=== PATIENT | female | born 1965 | race Caucasian/White ===

== ENCOUNTER 2023-02-13 08:51 | Observation (INO) | payer OTHER ==
[2023-02-13] MEDS ORDERED: Zofran 4 MG/2 ML VIAL IV ONE (09:43)
[2023-02-13] MEDS ORDERED: Sodium Chloride 0.9% 1000 ML 1,000 ML IV SCH (09:45)
--- NOTE | 2023-02-13 10:09 | XRAY ---
Indication: Dizziness. Multiple contiguous axial images obtained through the head without contrast. Comparison: None Normal appearing brain parenchyma, ventricles, and bony calvarium. Visualized paranasal sinuses and mastoid air cells are clear. Impression: Normal CT head without contrast exam.
[2023-02-13] MEDS ORDERED: BABY ASPIRIN 81 MG CHEW PO ONE (10:18)
[2023-02-13] MEDS ORDERED: BABY ASPIRIN 81 MG CHEW ONE (10:26)
[2023-02-13] MEDS ORDERED: Zofran 4 MG/2 ML VIAL ONE (10:26)
[2023-02-13] MEDS ORDERED: Sodium Chloride 0.9% 1000 ML 1,000 ML ONE (10:26)
[2023-02-13 10:27] LABS: ADD URINE CULTURE? YES (NO); Appearance Clear (Clear); Bacteria None Seen /HPF (None Seen); Bilirubin Negative (Negative); Blood Negative (Negative); Epithelial Cells None Seen /HPF (None Seen); Glucose, Urine Negative (Negative); Hyaline Casts NONE SEEN /LPF (0-2); Ketones Negative (Negative); Leukocyte Esterase Small (Negative); Nitrite Negative (Negative); Protein,Urine Dip Negative (Negative); RBC 0-2 /HPF (0-5); Specific Gravity 1.015 (1.005-1.030)
[2023-02-13] MEDS ORDERED: TORAdol 30 mg Injection ONE (10:28)
--- NOTE | 2023-02-13 10:55 | ERPHSYRPT ---
- History of Present Illness Time Seen by Provider: 02/13/23 09:00 Source: patient Exam Limitations: no limitations Patient Subjective Stated Complaint: dizziness Triage Nursing Assessment: Pt brought to the ER by her , hypertensive, denies pain, woke this morning and before she got up she states that she was dizzy after a few minutes she got up and was dizzy again, did some things to get ready and when she started blow drying her hair she got really dizzy again, denies LOC, denies any injuries, denies ear aches, states that she is beginning to feel nauseous, pulses normal, no difficulty with breathing, skin n/w/d, doesn't appear to be in any distress Physician History: Patient is a 57-year-old female presents to emergency department for evaluation of of dizziness that started this morning. Patient states the dizziness resolved then recurred several different times prior to her arrival to our ED. Patient is currently nauseous. No numbness tingling or weakness. No focal or lateralizing symptoms. Symptoms are mild to moderate in intensity. Patient voices no other complaints or concerns at this time. Portions of this note were created with voice recognition technology. There may be grammatical, spelling, punctuation or sound alike errors Timing/Duration: today Severity: moderate Associated Symptoms: nausea Allergies/Adverse Reactions: nitrofurantoin [From Macrobid] Allergy (Intermediate, Verified 02/13/23 09:09) Hives nitrofurantoin macrocrystalline [From Macrobid] Allergy (Intermediate, Verified 02/13/23 09:09) Hives doxycycline Allergy (Mild, Verified 02/13/23 09:09) Diarrhea gatifloxacin [From Tequin] Allergy (Mild, Verified 02/13/23 09:09) acetaminophen [From Vicodin] Allergy (Verified 02/13/23 09:09) clarithromycin [From Biaxin] Allergy (Verified 02/13/23 09:09) Stomach Pain hydrocodone bitartrate [From Vicodin] Allergy (Verified 02/13/23 09:09) pt does not think she is allergic to vicodin does not remember taking it. potassium clavula *RETIRED-06/26/12 [From Augmentin] Allergy (Verified 02/13/23 09:09) Diarrhea amoxicillin trihydrate [From Augmentin] Adverse Reaction (Verified 02/13/23 09:09) Home Medications: Fluoxetine HCl 40 mg PO HS 07/14/11 [History] Albuterol Sulfate [Proair Hfa] 2 puff IH Q4H PRN PRN 08/16/11 [History] Diphenhydramine HCl [Benadryl Allergy] 25 mg PO HS PRN PRN 09/10/15 [History] Montelukast Sodium 10 mg [Singulair 10 MG] 10 mg PO DAILY 05/17/18 [History] Benralizumab [Fasenra] 30 mg SQ DIRECTIONS UNKNOWN 06/14/18 [History] Aspirin EC 81 mg [Ecotrin 81 mg] 81 mg PO DAILY 12/25/20 [History] Lisinopril 10 mg [Zestril 10 MG] 10 mg PO DAILY 12/25/20 [History] Levocetirizine Dihydrochloride [Xyzal] 5 mg PO DAILY 02/24/21 [History] Omeprazole 20 mg PO DAILY 08/04/22 [History] Hx Tetanus, Diphtheria Vaccination/Date Given: Yes Hx Influenza Vaccination/Date Given: Yes (2014) Hx Pneumococcal Vaccination/Date Given: No Travel Risk - International Travel Have you traveled outside of the country in past 3 weeks: No - Coronavirus Screening Are you exhibiting any of the following symptoms?: No Close contact with a COVID-19 positive Pt in past 14-21 Days: No - Vaccine Status Have you recieved a Covid-19 vaccination: No [employer]: Pfizer - Vaccination Dates Date of 2cond Vaccination (if applicable): 2020 - Review of Systems Constitutional: No Symptoms, No Fever, No Chills Eyes: No Symptoms Ears, Nose, & Throat: No Symptoms Respiratory: No Symptoms, No Cough, No Dyspnea Cardiac: No Symptoms, No Chest Pain, No Edema, No Syncope Abdominal/Gastrointestinal: No Symptoms, No Abdominal Pain, No Nausea, No Vomiting, No Diarrhea Genitourinary Symptoms: No Symptoms, No Dysuria Musculoskeletal: No Symptoms, No Back Pain, No Neck Pain Skin: No Symptoms, No Rash Neurological: No Symptoms, No Dizziness, No Focal Weakness, No Sensory Changes Psychological: No Symptoms Endocrine: No Symptoms Hematologic/Lymphatic: No Symptoms Immunological/Allergic: No Symptoms All Other Systems: Reviewed and Negative - Past Medical History Pertinent Past Medical History: Yes Neurological History: Other ENT History: Other Cardiac History: No Pertinent History Respiratory History: Sleep Apnea, Asthma Endocrine Medical History: Diabetes Type II Musculoskeletal History: Osteoarthritis, Degenerative Disk Disease GI Medical History: Gallbladder Disease History: No Pertinent History Psycho-Social History: Anxiety Female Reproductive Disorders: No Pertinent History Other Medical History: pseudotumor cerebrii, COVID october 2020. Flu A Mar 2021 - Past Surgical History Past Surgical History: Yes Neuro Surgical History: No Pertinent History Cardiac: No Pertinent History Respiratory: No Pertinent History Gastrointestinal: Cholecystectomy Genitourinary: No Pertinent History Musculoskeletal: Orthopedic Surgery Female Surgical History: No Pertinent History Other Surgical History: lumbar puncture, cervical fusion, left carpal tunnel and trigger finger released thumb . right carpal tunnel release and bilateral trigger thumb 08/07/2019. - Social History Smoking Status: Never smoker Exposure to second hand smoke: No Drug Use: none Patient Lives Alone: No - Nursing Vital Signs Nursing Vital Signs: Initial Vital Signs Temperature 97.3 F 02/13/23 08:58 Pulse Rate 96 H 02/13/23 08:58 Blood Pressure 171/85 02/13/23 08:58 O2 Sat by Pulse Oximetry 98 02/13/23 08:58 Pain Scale Pain Intensity 0 - Physical Exam General Appearance: no apparent distress, alert Eye Exam: PERRL/EOMI, eyes nml inspection Ears, Nose, Throat Exam: normal ENT inspection, TMs normal, pharynx normal, moist mucous membranes Neck Exam: normal inspection, non-tender, supple, full range of motion Respiratory Exam: normal breath sounds, lungs clear, airway intact, No respiratory distress Cardiovascular Exam: regular rate/rhythm, normal heart sounds, normal peripheral pulses Gastrointestinal/Abdomen Exam: soft, normal bowel sounds, No tenderness, No mass Back Exam: normal inspection, normal range of motion, No CVA tenderness, No vertebral tenderness Extremity Exam: normal inspection, normal range of motion, pelvis stable Neurologic Exam: alert, oriented x 3, cooperative, normal mood/affect, nml cerebellar function, nml station & gait, sensation nml, No motor deficits Skin Exam: normal color, warm, dry, No rash Lymphatic Exam: No adenopathy SpO2 Interpretation: normal SpO2: 97 O2 Delivery: Room Air - Course Nursing assessment & vital signs reviewed: Yes EKG Interpreted by Me: RATE (80), Sinus Rhythm, NORMAL AXIS, NORMAL INTERVALS - CT Exams Head CT Interpretation: Tele-radiologist Report (No acute intracranial process observed) Ordered Tests: Active Orders 24 hr Category Date Time Status Poultry Raiser STAT Care 02/13/23 09:38 Active EKG-ER Only STAT Care 02/13/23 09:37 Active IV Insertion STAT Care 02/13/23 09:37 Active Pulse Oximetry (ED) STAT Care 02/13/23 09:37 Active HEAD WITHOUT CONTRAST [CT] Stat Exams 02/13/23 09:39 Completed CBC W DIFF Stat Lab 02/13/23 10:50 Completed CMP Stat Lab 02/13/23 10:50 Completed CULTURE,URINE Stat Lab 02/13/23 09:54 Received TROPONIN Q4H Lab 02/13/23 10:50 Received TROPONIN Q4H Lab 02/13/23 13:45 Ordered TROPONIN Q4H Lab 02/13/23 17:45 Ordered UA W/RFX UR CULTURE Stat Lab 02/13/23 09:54 Completed Medication Summary Generic Name Dose Route Start Last Admin Trade Name Freq PRN Reason Stop Dose Admin Sodium Chloride 1,000 mls @ 50 mls/hr 02/13/23 09:45 02/13/23 10:31 Sodium Chloride 0.9% 1000 Ml IV 03/15/23 09:44 50 mls/hr .Q20H REGINA Administration Discontinued Medications Generic Name Dose Route Start Last Admin Trade Name Freq PRN Reason Stop Dose Admin Aspirin 324 mg 02/13/23 10:18 02/13/23 10:31 Aspirin 81 Mg Tab.Chew PO 02/13/23 10:19 324 mg STAT ONE Administration Aspirin Confirm 02/13/23 10:26 Aspirin 81 Mg Tab.Chew Administered 02/13/23 10:27 Dose 324 mg .ROUTE .STK-MED ONE Ketorolac Tromethamine Confirm 02/13/23 10:28 Ketorolac Tromethamine 30 Mg/Ml Inj Administered 02/13/23 10:29 Dose 30 mg .ROUTE .STK-MED ONE Meclizine HCl 25 mg 02/13/23 11:25 02/13/23 11:36 Meclizine Hcl 25 Mg Tablet PO 02/13/23 11:26 25 mg STAT ONE Administration Meclizine HCl Confirm 02/13/23 11:34 Meclizine Hcl 25 Mg Tablet Administered 02/13/23 11:35 Dose 25 mg .ROUTE .STK-MED ONE Ondansetron HCl 4 mg 02/13/23 09:43 02/13/23 10:31 Ondansetron Hcl 4 Mg/2 Ml Vial IV 02/13/23 09:44 4 mg STAT ONE Administration Ondansetron HCl Confirm 02/13/23 10:26 Ondansetron Hcl 4 Mg/2 Ml Vial Administered 02/13/23 10:27 Dose 4 mg .ROUTE .STK-MED ONE Trimethoprim/Sulfamethoxazole 1 tab 02/13/23 11:02 02/13/23 11:07 Smz/Tmp Ds Tablet 1 Tablet PO 02/13/23 11:03 1 tab STAT STA Administration Trimethoprim/Sulfamethoxazole Confirm 02/13/23 11:06 Smz/Tmp Ds Tablet 1 Tablet Administered 02/13/23 11:07 Dose 1 tab PO .STK-MED ONE Lab/Rad Data: Laboratory Result Diagrams 02/13/23 10:50 02/13/23 10:50 Laboratory Results 02/13/23 02/13/23 02/13/23 Range/Units 10:50 10:50 09:54 WBC 7.3 (4.0-10.5) x10^3/uL RBC 5.04 (4.1-5.4) x10^6/uL Hgb 13.9 (12.0-16.0) g/dL Hct 44.9 (35-47) % MCV 89.1 (78-100) fL MCH 27.6 (26-32) pg MCHC 31.0 L (32-36) g/dL RDW 13.1 (11.5-14.0) % Plt Count 259 (150-450) x10^3/uL MPV 9.7 (7.5-11.0) fL Gran % 72.6 H (36.0-66.0) % Immature Gran % (Auto) 0.5 H (0.00-0.4) % Nucleat RBC Rel Count 0.0 (0.00-0.1) % Eos # (Auto) 0 (0-0.5) x10^3/uL Immature Gran # (Auto) 0.04 H (0.00-0.03) x10^3u/L Absolute Lymphs (auto) 1.63 (1.0-4.6) x10^3/uL Absolute Monos (auto) 0.30 (0.0-1.3) x10^3/uL Absolute Nucleated RBC 0.00 (0.00-0.01) x10^3u/L Lymphocytes % 22.4 L (24.0-44.0) % Monocytes % 4.1 (0.0-12.0) % Eosinophils % 0.0 (0.00-5.0) % Basophils % 0.4 (0.0-0.4) % Absolute Granulocytes 5.28 (1.4-6.9) x10^3/uL Basophils # 0.03 (0-0.4) x10^3/uL Sodium 140 (137-145) mmol/L Potassium 5.1 (3.5-5.1) mmol/L Chloride 104 (98-107) mmol/L Carbon Dioxide 28 (22-30) mmol/L Anion Gap 12.7 (5-15) MEQ/L BUN 22 H (7-17) mg/dL Creatinine 1.16 H (0.52-1.04) mg/dL Estimated GFR 54.7 ML/MIN Glucose 145 H (74-106) mg/dL Calcium 9.2 (8.4-10.2) mg/dL Total Bilirubin 0.70 (0.2-1.3) mg/dL AST 34 (14-36) U/L ALT 29 (0-35) U/L Alkaline Phosphatase 95 (38-126) U/L Serum Total Protein 7.5 (6.3-8.2) g/dL Albumin 3.9 (3.5-5.0) g/dL Urine Color Yellow (Yellow) Urine Appearance Clear (Clear) Urine pH 7.0 (4.6-8.0) Ur Specific [place] 1.015 (1.005-1.030) Urine Protein Negative (Negative) Urine Glucose (UA) Negative (Negative) mg/dL Urine Ketones Negative (Negative) Urine Blood Negative (Negative) Urine Nitrite Negative (Negative) Urine Bilirubin Negative (Negative) Urine Urobilinogen 1.0 A (0.2) mg/dL Ur Leukocyte Esterase Small A (Negative) U Hyaline Cast (Auto) NONE SEEN (0-2) /LPF Urine Microscopic RBC 0-2 (0-5) /HPF Urine Microscopic WBC 11-20 A (0-5) /HPF Ur Epithelial Cells None Seen (None Seen) /HPF Urine Bacteria None Seen (None Seen) /HPF Urine Culture Reflexed YES (NO) - Progress Progress: improved Progress Note: 57-year-old female presents to our ED with acute onset dizziness. CT head neg ative for acute intracranial pathology. EKG normal sinus rhythm. CBC essentially unremarkable. CMPE pending. Troponin negative. Urinalysis reveals a urinary tract infection. Patient received an oral dose of Bactrim. Aspirin administered as well. Patient received meclizine for dizziness and Zofran for nausea. IV fluids infusing. Teleneurologist recommends admission to assess for possible stroke/TIA .Case discussed with neurologist at 11:23 AM Plan of care discussed with patient. She agrees to admission to [facility] for further evaluation and treatment. Portions of this note were created with voice recognition technology. There may be grammatical, spelling, punctuation or sound alike errors Complexity of problems addressed is moderate acute complicated No critical care time Complexity of data reviewed and analyzed is Extensive. Test ordered test reviewed. Results analyzed and correlated clinically. Management discussed with Neurologist who advises Admission to rule out stroke/TIA. Risk of complication and or risk of morbidity/mortality of patient management is high. Patient requires hospitalization for further evaluation and treatment. Portions of this note were created with voice recognition technology. There may be grammatical, spelling, punctuation or sound alike errors Vital stable. Time spent to Admit patient approximately 15 minutes. Plan of care established for shared decision making. 02/13/23 11:37 Dr. Isaac Accepts admission at 11:47 AM 02/13/23 11:[address] Other (Dr. Isaac) Counseled pt/family regarding: lab results, diagnosis, rad results - Departure Departure Disposition: Observation Clinical Impression: UTI (urinary tract infection), Dizziness, Nausea Condition: Stable Critical Care Time: No Referrals: DANIELA ARBOLEDA DO [Primary Care Provider] - Follow up/PCP as directed
[2023-02-13] MEDS ORDERED: BACTRIM DS TABLET PO STA (11:02)
[2023-02-13] MEDS ORDERED: BACTRIM DS TABLET PO ONE (11:06)
[2023-02-13 11:10] LABS: Absolute Neutrophil Ct (ANC) 5.28 x10^3/uL (1.4-6.9); BASOPHIL % 0.4 % (0.0-0.4); Basophil (Absolute #) 0.03 x10^3/uL (0-0.4); Eosinophil (Absolute #) 0 x10^3/uL (0-0.5); Hematocrit 44.9 % (35-47); Hemoglobin 13.9 g/dL (12.0-16.0); IMMATURE GRAN # 0.04 x10^3u/L (0.00-0.03); IMMATURE GRAN % 0.5 % (0.00-0.4); Lymphocyte (Absolute #) 1.63 x10^3/uL (1.0-4.6); Lymphocytes % 22.4 % (24.0-44.0); Mean Cell Volume 89.1 fL (78-100); Mean Corpuscular Hemoglobin 27.6 pg (26-32); Mean Platelet Volume 9.7 fL (7.5-11.0); Monocytes % 4.1 % (0.0-12.0); Neutrophil % 72.6 % (36.0-66.0); Platelet Count 259 x10^3/uL (150-450); Red Blood Count 5.04 x10^6/uL (4.1-5.4); Red Cell Distribution Width 13.1 % (11.5-14.0); White Blood Count 7.3 x10^3/uL (4.0-10.5)
[2023-02-13] MEDS ORDERED: ANTIVERT 25 MG PO ONE (11:25)
[2023-02-13] MEDS ORDERED: ANTIVERT 25 MG ONE (11:34)
[2023-02-13 11:38] LABS: ALBUMIN 3.9 g/dL (3.5-5.0); ANION GAP 12.7 MEQ/L (5-15); BILIRUBIN,TOTAL 0.7 mg/dL (0.2-1.3); Calcium 9.2 mg/dL (8.4-10.2); Creatinine 1 1.16 mg/dL (0.52-1.04); EST GLOMERULAR FILTRATION RATE 54.7 ML/MIN; Potassium 5.1 mmol/L (3.5-5.1); Total Protein 7.5 g/dL (6.3-8.2)
--- NOTE | 2023-02-13 15:50 | PCM.HP ---
History of Present Illness - Chief Complaint Chief Complaint: Dizziness Date: 02/13/23 (1500) History of Present Illness: is a 57 year old female admitted with vertigo. She woke up this am with dizziness. "the room was spinning". Her dizziness since then has been intermittent. She reports it's worse when she bends her head forward. No other neurologic symptoms. No increased headaches. No change in vision or hearing. No problems with speech or swallowing. No focal numbness or weakness. No fever, cough sore throat. No chest pain or dyspnea. No abdominal pain. She has had some nausea but no vomiting. PMH includes HTN, DM, NAOMI and pseudotumor cerebri. She was seen in ER by Neurology and they recommended hospitalization for MRI. - Review of Systems Constitutional: No Symptoms, No Fever, No Chills Eyes: No Symptoms, No Discharge, No Vision Changes Ears, Nose, & Throat: No Ear Pain, No Hearing Changes, No Tinnitus, No Nose Pain, No Painful Swallowing Respiratory: No Symptoms, No Cough, No Short Of Breath Cardiac: No Symptoms, No Chest Pain, No Edema, No Palpitations, No Syncope Abdominal/Gastrointestinal: No Symptoms, Nausea, No Abdominal Pain, No Vomiting, No Diarrhea Genitourinary Symptoms: No Symptoms, No Dysuria, No Frequency Musculoskeletal: No Symptoms Skin: No Symptoms Neurological: Dizziness, Vertigo, No Focal Weakness, No Gait Changes, No Headache, No Irritability, No Lethargy, No Paralysis, No Parasthesia, No Speech Changes Psychological: No Symptoms Endocrine: No Symptoms Immunological/Allergic: No Symptoms All Other Systems: Reviewed and Negative Medications & Allergies Home Medications: Home Medication List Fluoxetine HCl 40 mg PO HS 07/14/11 [History Confirmed 02/13/23] Albuterol Sulfate [Proair Hfa] 2 puff IH Q4H PRN PRN 08/16/11 [History Confirmed 02/13/23] Diphenhydramine HCl [Benadryl Allergy] 25 mg PO HS PRN PRN 09/10/15 [History Confirmed 02/13/23] Montelukast Sodium 10 mg [Singulair 10 MG] 10 mg PO HS 05/17/18 [History Confirmed 02/13/23] Benralizumab [Fasenra] 30 mg SQ UD 04/12/19 [History Confirmed 02/13/23] Aspirin EC 81 mg [Ecotrin 81 mg] 81 mg PO HS 12/25/20 [History Confirmed 02/13/23] Lisinopril 10 mg [Zestril 10 MG] 10 mg PO HS 12/25/20 [History Confirmed 02/13/23] Levocetirizine Dihydrochloride [Xyzal] 5 mg PO HS 02/24/21 [History Confirmed 02/13/23] Omeprazole 20 mg PO HS 08/04/22 [History Confirmed 02/13/23] Allergies/Adverse Reactions: Allergies Allergy/AdvReac Type Severity Reaction Status Date / Time nitrofurantoin Allergy Intermediate Hives Verified 02/13/23 09:09 [From Macrobid] nitrofurantoin Allergy Intermediate Hives Verified 02/13/23 09:09 macrocrystalline [From Macrobid] doxycycline Allergy Mild Diarrhea Verified 02/13/23 09:09 gatifloxacin [From Tequin] Allergy Mild Verified 02/13/23 09:09 acetaminophen [From Vicodin] Allergy Verified 02/13/23 09:09 clarithromycin [From Biaxin] Allergy Stomach Verified 02/13/23 09:09 Pain hydrocodone bitartrate Allergy Verified 02/13/23 09:09 [From Vicodin] potassium clavula Allergy Diarrhea Verified 02/13/23 09:09 *RETIRED-06/26/12 [From Augmentin] amoxicillin trihydrate AdvReac Verified 02/13/23 09:09 [From Augmentin] - Past Medical History Past Medical History: Yes Neurological History: Other ENT History: Other Cardiac History: No Pertinent History Respiratory History: Sleep Apnea, Asthma Endocrine Medical History: Diabetes Type II Musculoskelatal History: Osteoarthritis, Degenerative Disk Disease GI Medical History: Gallbladder Disease History: No Pertinent History Pyscho-Social History: Anxiety Reproductive Disorders: No Pertinent History Comment: pseudotumor cerebrii, COVID october 2020. Flu A Mar 2021 - Female History Are you now?: No - Past Surgical History Past Surgical History: Yes Neuro Surgical History: No Pertinent History Cardiac History: No Pertinent History Respiratory Surgery: No Pertinent History GI Surgical History: Cholecystectomy Genitourinary Surgical Hx: No Pertinent History Musculskeletal Surgical Hx: Orthopedic Surgery Female Surgical History: No Pertinent History Other Surgical History: lumbar puncture, cervical fusion, left carpal tunnel and trigger finger released thumb . right carpal tunnel release and bilateral trigger thumb 08/07/2019. - Social History Smoking Status: Never smoker Exposure to second hand smoke: Yes Alcohol: None Drug Use: none - Physical Exam Vital Signs: Vital Signs - 24 hr Temp Pulse Resp BP BP Pulse Ox 02/13/23 12:17 84 16 154/71 96 02/13/23 12:02 97.7 F 84 17 154/71 96 02/13/23 11:49 97 02/13/23 11:45 122/102 02/13/23 11:30 88 12 133/86 94 L 02/13/23 11:15 90 19 133/71 95 02/13/23 11:00 79 13 138/79 93 L 02/13/23 10:45 85 13 144/76 94 L 02/13/23 10:30 80 21 135/89 94 L 02/13/23 10:15 78 13 127/71 94 L 02/13/23 10:10 156/84 95 02/13/23 10:02 81 156/84 97 02/13/23 09:44 96 02/13/23 09:30 132/71 02/13/23 09:09 152/79 94 L 02/13/23 08:58 97.3 F 96 H 171/85 98 General Appearance: no apparent distress Neurologic Exam: alert, oriented x 3, cooperative, rosin barrel filler II-XII nml as tested, nml station & gait Eye Exam: PERRL/EOMI, eyes nml inspection Ears, Nose, Throat Exam: normal ENT inspection Neck Exam: normal inspection, non-tender, supple, full range of motion Respiratory Exam: normal breath sounds, lungs clear, No chest tenderness Cardiovascular Exam: regular rate/rhythm, normal heart sounds, normal peripheral pulses Gastrointestinal/Abdomen Exam: soft, normal bowel sounds, No tenderness, No di stention, No mass Pelvic Exam: not done Rectal Exam: deferred Back Exam: normal inspection Extremity Exam: normal inspection Skin Exam: normal color, warm, dry Lymphatic Exam: No adenopathy Results - Labs Lab/Micro Results: Lab Results-Last 24 Hours 02/13/23 02/13/23 02/13/23 Range/Units 09:54 10:50 10:50 WBC 7.3 (4.0-10.5) x10^3/uL RBC 5.04 (4.1-5.4) x10^6/uL Hgb 13.9 (12.0-16.0) g/dL Hct 44.9 (35-47) % MCV 89.1 (78-100) fL MCH 27.6 (26-32) pg MCHC 31.0 L (32-36) g/dL RDW 13.1 (11.5-14.0) % Plt Count 259 (150-450) x10^3/uL MPV 9.7 (7.5-11.0) fL Gran % 72.6 H (36.0-66.0) % Immature Gran % (Auto) 0.5 H (0.00-0.4) % Nucleat RBC Rel Count 0.0 (0.00-0.1) % Eos # (Auto) 0 (0-0.5) x10^3/uL Immature Gran # (Auto) 0.04 H (0.00-0.03) x10^3u/L Absolute Lymphs (auto) 1.63 (1.0-4.6) x10^3/uL Absolute Monos (auto) 0.30 (0.0-1.3) x10^3/uL Absolute Nucleated RBC 0.00 (0.00-0.01) x10^3u/L Lymphocytes % 22.4 L (24.0-44.0) % Monocytes % 4.1 (0.0-12.0) % Eosinophils % 0.0 (0.00-5.0) % Basophils % 0.4 (0.0-0.4) % Absolute Granulocytes 5.28 (1.4-6.9) x10^3/uL Basophils # 0.03 (0-0.4) x10^3/uL Sodium 140 (137-145) mmol/L Potassium 5.1 (3.5-5.1) mmol/L Chloride 104 (98-107) mmol/L Carbon Dioxide 28 (22-30) mmol/L Anion Gap 12.7 (5-15) MEQ/L BUN 22 H (7-17) mg/dL Creatinine 1.16 H (0.52-1.04) mg/dL Estimated GFR 54.7 ML/MIN Glucose 145 H (74-106) mg/dL Hemoglobin A1c (4.5-6.0) % Calcium 9.2 (8.4-10.2) mg/dL Total Bilirubin 0.70 (0.2-1.3) mg/dL AST 34 (14-36) U/L ALT 29 (0-35) U/L Alkaline Phosphatase 95 (38-126) U/L Troponin I (0.000-0.034) ng/mL Serum Total Protein 7.5 (6.3-8.2) g/dL Albumin 3.9 (3.5-5.0) g/dL Urine Color Yellow (Yellow) Urine Appearance Clear (Clear) Urine pH 7.0 (4.6-8.0) Ur Specific [place] 1.015 (1.005-1.030) Urine Protein Negative (Negative) Urine Glucose (UA) Negative (Negative) mg/dL Urine Ketones Negative (Negative) Urine Blood Negative (Negative) Urine Nitrite Negative (Negative) Urine Bilirubin Negative (Negative) Urine Urobilinogen 1.0 A (0.2) mg/dL Ur Leukocyte Esterase Small A (Negative) U Hyaline Cast (Auto) NONE SEEN (0-2) /LPF Urine Microscopic RBC 0-2 (0-5) /HPF Urine Microscopic WBC 11-20 A (0-5) /HPF Ur Epithelial Cells None Seen (None Seen) /HPF Urine Bacteria None Seen (None Seen) /HPF Urine Culture Reflexed YES (NO) 02/13/23 02/13/23 02/13/23 Range/Units 10:50 10:50 13:38 WBC (4.0-10.5) x10^3/uL RBC (4.1-5.4) x10^6/uL Hgb (12.0-16.0) g/dL Hct (35-47) % MCV (78-100) fL MCH (26-32) pg MCHC (32-36) g/dL RDW (11.5-14.0) % Plt Count (150-450) x10^3/uL MPV (7.5-11.0) fL Gran % (36.0-66.0) % Immature Gran % (Auto) (0.00-0.4) % Nucleat RBC Rel Count (0.00-0.1) % Eos # (Auto) (0-0.5) x10^3/uL Immature Gran # (Auto) (0.00-0.03) x10^3u/L Absolute Lymphs (auto) (1.0-4.6) x10^3/uL Absolute Monos (auto) (0.0-1.3) x10^3/uL Absolute Nucleated RBC (0.00-0.01) x10^3u/L Lymphocytes % (24.0-44.0) % Monocytes % (0.0-12.0) % Eosinophils % (0.00-5.0) % Basophils % (0.0-0.4) % Absolute Granulocytes (1.4-6.9) x10^3/uL Basophils # (0-0.4) x10^3/uL Sodium (137-145) mmol/L Potassium (3.5-5.1) mmol/L Chloride (98-107) mmol/L Carbon Dioxide (22-30) mmol/L Anion Gap (5-15) MEQ/L BUN (7-17) mg/dL Creatinine (0.52-1.04) mg/dL Estimated GFR ML/MIN Glucose (74-106) mg/dL Hemoglobin A1c 5.80 (4.5-6.0) % Calcium (8.4-10.2) mg/dL Total Bilirubin (0.2-1.3) mg/dL AST (14-36) U/L ALT (0-35) U/L Alkaline Phosphatase (38-126) U/L Troponin I < 0.012 < 0.012 (0.000-0.034) ng/mL Serum Total Protein (6.3-8.2) g/dL Albumin (3.5-5.0) g/dL Urine Color (Yellow) Urine Appearance (Clear) Urine pH (4.6-8.0) Ur Specific [place] (1.005-1.030) Urine Protein (Negative) Urine Glucose (UA) (Negative) mg/dL Urine Ketones (Negative) Urine Blood (Negative) Urine Nitrite (Negative) Urine Bilirubin (Negative) Urine Urobilinogen (0.2) mg/dL Ur Leukocyte Esterase (Negative) U Hyaline Cast (Auto) (0-2) /LPF Urine Microscopic RBC (0-5) /HPF Urine Microscopic WBC (0-5) /HPF Ur Epithelial Cells (None Seen) /HPF Urine Bacteria (None Seen) /HPF Urine Culture Reflexed (NO) - Radiology Impressions Radiology Exams & Impressions: Radiology Procedures Category Date Time Status HEAD WITHOUT CONTRAST [CT] Stat Exams 02/13/23 09:39 Completed Assessment/Plan (1) Dizziness Current Visit: Yes Status: Acute Assessment & Plan: This is the problem that brought her to hospital She is having vertigo that is some what positional CT head is negative No focal symptoms or findings Neurology recommends MRI of brain Will treat with Antivert and nausea meds as needed Code(s): R42 - DIZZINESS AND GIDDINESS (2) HTN (hypertension) Current Visit: Yes Status: Chronic Qualifiers: Hypertension type: primary hypertension Qualified Code(s): I10 - Essential (primary) hypertension Assessment & Plan: Continue home meds Code(s): I10 - ESSENTIAL (PRIMARY) HYPERTENSION (3) Diabetes type 2, controlled Current Visit: Yes Status: Chronic Assessment & Plan: Diabetes type 2 controlled Monitor BS. SS insulin Code(s): E11.9 - TYPE 2 DIABETES MELLITUS WITHOUT COMPLICATIONS (4) UTI (urinary tract infection) Current Visit: Yes Status: Acute Assessment & Plan: UA suggests possible UTI Culture pending Will begin oral antibiotic Code(s): N39.0 - URINARY TRACT INFECTION, SITE NOT SPECIFIED Telemedicine Encounter - Telemedicine Encounter Telemedicine Encounter: The entirety of this encounter was performed via Telemedicine after consent obtained. Labs and imaging reviewed Discussed with ER Provider and Neurology 70 minutes spent on care of this patient Mario Isaac MD [facility]
[2023-02-13] MEDS ORDERED: VENTOLIN COMMON CANISTER IH PRN (15:57)
[2023-02-13] MEDS ORDERED: TYLENOL 325 MG PO PRN (15:58)
[2023-02-13] MEDS ORDERED: Docusate Sodium 100 MG PO PRN (15:58)
[2023-02-13] MEDS ORDERED: BENADRYL 25 MG CAPSULE PO PRN (16:12)
[2023-02-13] MEDS: ENOXAPARIN SODIUM SQ SCH (17:09)
[2023-02-13] MEDS: KEFLEX 500 MG PO SCH ×2 (17:09→21:24)
[2023-02-13] MEDS: ANTIVERT 25 MG PO SCH (21:23)
[2023-02-13] MEDS ORDERED: Prozac 20 MG PO SCH (22:00)
[2023-02-13] MEDS ORDERED: Protonix 40MG Tablet PO SCH (22:00)
[2023-02-13] MEDS ORDERED: ECOTRIN 81 MG PO SCH (22:00)
[2023-02-13] MEDS ORDERED: Zestril 10 MG PO SCH (22:00)
[2023-02-13] MEDS ORDERED: CLARITIN 10 MG PO SCH (22:00)
[2023-02-13] MEDS ORDERED: Singulair 10 MG PO SCH (22:00)
--- NOTE | 2023-02-14 04:54 | PCM.NOTE ---
Date and Time: 02/14/23448 Subjective Assessment: HPI: is a 57 year old female with a PMH includes HTN, DM, NAOMI and pseudotumor cerebri presented to ED 02/13/23 with complaints of "room spinning" dizziness, admitted with vertigo. CT of the head was unremarkable. Neurology consulted recommending MRI. OBJECTIVE DATA Vital Signs: Vital Signs - 24 hr Temp Pulse Resp BP BP Pulse Ox 02/14/23 03:51 97.7 F 84 19 137/63 96 02/13/23 23:56 97.8 F 78 18 131/62 95 02/13/23 20:00 97.8 F 75 20 116/56 95 02/13/23 18:40 93 H 16 93 L 02/13/23 17:06 95 02/13/23 17:03 90 18 95 02/13/23 16:02 98.1 F 75 18 132/59 93 L 02/13/23 12:17 84 16 154/71 96 02/13/23 12:02 97.7 F 84 17 154/71 96 02/13/23 11:49 97 02/13/23 11:45 122/102 02/13/23 11:30 88 12 133/86 94 L 02/13/23 11:15 90 19 133/71 95 02/13/23 11:00 79 13 138/79 93 L 02/13/23 10:45 85 13 144/76 94 L 02/13/23 10:30 80 21 135/89 94 L 02/13/23 10:15 78 13 127/71 94 L 02/13/23 10:10 156/84 95 02/13/23 10:02 81 156/84 97 02/13/23 09:44 96 02/13/23 09:30 132/71 02/13/23 09:09 152/79 94 L 02/13/23 08:58 97.3 F 96 H 171/85 98 Pain Assessment - Last Documented Pain Intensity 0 Intake and Output: Intake & Output 02/11/23 02/12/23 02/13/23 02/14/23 11:59 11:59 11:59 11:59 Intake Total 2325 Output Total 450 Balance 1875 Weight 117.934 kg 120.6 kg Lab Results: Lab Results-Last 24 Hours 02/13/23 02/13/23 02/13/23 Range/Units 09:54 10:50 10:50 WBC 7.3 (4.0-10.5) x10^3/uL RBC 5.04 (4.1-5.4) x10^6/uL Hgb 13.9 (12.0-16.0) g/dL Hct 44.9 (35-47) % MCV 89.1 (78-100) fL MCH 27.6 (26-32) pg MCHC 31.0 L (32-36) g/dL RDW 13.1 (11.5-14.0) % Plt Count 259 (150-450) x10^3/uL MPV 9.7 (7.5-11.0) fL Gran % 72.6 H (36.0-66.0) % Immature Gran % (Auto) 0.5 H (0.00-0.4) % Nucleat RBC Rel Count 0.0 (0.00-0.1) % Eos # (Auto) 0 (0-0.5) x10^3/uL Immature Gran # (Auto) 0.04 H (0.00-0.03) x10^3u/L Absolute Lymphs (auto) 1.63 (1.0-4.6) x10^3/uL Absolute Monos (auto) 0.30 (0.0-1.3) x10^3/uL Absolute Nucleated RBC 0.00 (0.00-0.01) x10^3u/L Lymphocytes % 22.4 L (24.0-44.0) % Monocytes % 4.1 (0.0-12.0) % Eosinophils % 0.0 (0.00-5.0) % Basophils % 0.4 (0.0-0.4) % Absolute Granulocytes 5.28 (1.4-6.9) x10^3/uL Basophils # 0.03 (0-0.4) x10^3/uL Sodium 140 (137-145) mmol/L Potassium 5.1 (3.5-5.1) mmol/L Chloride 104 (98-107) mmol/L Carbon Dioxide 28 (22-30) mmol/L Anion Gap 12.7 (5-15) MEQ/L BUN 22 H (7-17) mg/dL Creatinine 1.16 H (0.52-1.04) mg/dL Estimated GFR 54.7 ML/MIN Glucose 145 H (74-106) mg/dL POC Glucometer (74 to 106) mg/dL Hemoglobin A1c (4.5-6.0) % Calcium 9.2 (8.4-10.2) mg/dL Total Bilirubin 0.70 (0.2-1.3) mg/dL AST 34 (14-36) U/L ALT 29 (0-35) U/L Alkaline Phosphatase 95 (38-126) U/L Troponin I (0.000-0.034) ng/mL Serum Total Protein 7.5 (6.3-8.2) g/dL Albumin 3.9 (3.5-5.0) g/dL Urine Color Yellow (Yellow) Urine Appearance Clear (Clear) Urine pH 7.0 (4.6-8.0) Ur Specific [place] 1.015 (1.005-1.030) Urine Protein Negative (Negative) Urine Glucose (UA) Negative (Negative) mg/dL Urine Ketones Negative (Negative) Urine Blood Negative (Negative) Urine Nitrite Negative (Negative) Urine Bilirubin Negative (Negative) Urine Urobilinogen 1.0 A (0.2) mg/dL Ur Leukocyte Esterase Small A (Negative) U Hyaline Cast (Auto) NONE SEEN (0-2) /LPF Urine Microscopic RBC 0-2 (0-5) /HPF Urine Microscopic WBC 11-20 A (0-5) /HPF Ur Epithelial Cells None Seen (None Seen) /HPF Urine Bacteria None Seen (None Seen) /HPF Urine Culture Reflexed YES (NO) 02/13/23 02/13/23 02/13/23 Range/Units 10:50 10:50 13:38 WBC (4.0-10.5) x10^3/uL RBC (4.1-5.4) x10^6/uL Hgb (12.0-16.0) g/dL Hct (35-47) % MCV (78-100) fL MCH (26-32) pg MCHC (32-36) g/dL RDW (11.5-14.0) % Plt Count (150-450) x10^3/uL MPV (7.5-11.0) fL Gran % (36.0-66.0) % Immature Gran % (Auto) (0.00-0.4) % Nucleat RBC Rel Count (0.00-0.1) % Eos # (Auto) (0-0.5) x10^3/uL Immature Gran # (Auto) (0.00-0.03) x10^3u/L Absolute Lymphs (auto) (1.0-4.6) x10^3/uL Absolute Monos (auto) (0.0-1.3) x10^3/uL Absolute Nucleated RBC (0.00-0.01) x10^3u/L Lymphocytes % (24.0-44.0) % Monocytes % (0.0-12.0) % Eosinophils % (0.00-5.0) % Basophils % (0.0-0.4) % Absolute Granulocytes (1.4-6.9) x10^3/uL Basophils # (0-0.4) x10^3/uL Sodium (137-145) mmol/L Potassium (3.5-5.1) mmol/L Chloride (98-107) mmol/L Carbon Dioxide (22-30) mmol/L Anion Gap (5-15) MEQ/L BUN (7-17) mg/dL Creatinine (0.52-1.04) mg/dL Estimated GFR ML/MIN Glucose (74-106) mg/dL POC Glucometer (74 to 106) mg/dL Hemoglobin A1c 5.80 (4.5-6.0) % Calcium (8.4-10.2) mg/dL Total Bilirubin (0.2-1.3) mg/dL AST (14-36) U/L ALT (0-35) U/L Alkaline Phosphatase (38-126) U/L Troponin I < 0.012 < 0.012 (0.000-0.034) ng/mL Serum Total Protein (6.3-8.2) g/dL Albumin (3.5-5.0) g/dL Urine Color (Yellow) Urine Appearance (Clear) Urine pH (4.6-8.0) Ur Specific [place] (1.005-1.030) Urine Protein (Negative) Urine Glucose (UA) (Negative) mg/dL Urine Ketones (Negative) Urine Blood (Negative) Urine Nitrite (Negative) Urine Bilirubin (Negative) Urine Urobilinogen (0.2) mg/dL Ur Leukocyte Esterase (Negative) U Hyaline Cast (Auto) (0-2) /LPF Urine Microscopic RBC (0-5) /HPF Urine Microscopic WBC (0-5) /HPF Ur Epithelial Cells (None Seen) /HPF Urine Bacteria (None Seen) /HPF Urine Culture Reflexed (NO) 02/13/23 02/13/23 02/13/23 Range/Units 16:27 17:48 21:45 WBC (4.0-10.5) x10^3/uL RBC (4.1-5.4) x10^6/uL Hgb (12.0-16.0) g/dL Hct (35-47) % MCV (78-100) fL MCH (26-32) pg MCHC (32-36) g/dL RDW (11.5-14.0) % Plt Count (150-450) x10^3/uL MPV (7.5-11.0) fL Gran % (36.0-66.0) % Immature Gran % (Auto) (0.00-0.4) % Nucleat RBC Rel Count (0.00-0.1) % Eos # (Auto) (0-0.5) x10^3/uL Immature Gran # (Auto) (0.00-0.03) x10^3u/L Absolute Lymphs (auto) (1.0-4.6) x10^3/uL Absolute Monos (auto) (0.0-1.3) x10^3/uL Absolute Nucleated RBC (0.00-0.01) x10^3u/L Lymphocytes % (24.0-44.0) % Monocytes % (0.0-12.0) % Eosinophils % (0.00-5.0) % Basophils % (0.0-0.4) % Absolute Granulocytes (1.4-6.9) x10^3/uL Basophils # (0-0.4) x10^3/uL Sodium (137-145) mmol/L Potassium (3.5-5.1) mmol/L Chloride (98-107) mmol/L Carbon Dioxide (22-30) mmol/L Anion Gap (5-15) MEQ/L BUN (7-17) mg/dL Creatinine (0.52-1.04) mg/dL Estimated GFR ML/MIN Glucose (74-106) mg/dL POC Glucometer 83 83 (74 to 106) mg/dL Hemoglobin A1c (4.5-6.0) % Calcium (8.4-10.2) mg/dL Total Bilirubin (0.2-1.3) mg/dL AST (14-36) U/L ALT (0-35) U/L Alkaline Phosphatase (38-126) U/L Troponin I < 0.012 (0.000-0.034) ng/mL Serum Total Protein (6.3-8.2) g/dL Albumin (3.5-5.0) g/dL Urine Color (Yellow) Urine Appearance (Clear) Urine pH (4.6-8.0) Ur Specific [place] (1.005-1.030) Urine Protein (Negative) Urine Glucose (UA) (Negative) mg/dL Urine Ketones (Negative) Urine Blood (Negative) Urine Nitrite (Negative) Urine Bilirubin (Negative) Urine Urobilinogen (0.2) mg/dL Ur Leukocyte Esterase (Negative) U Hyaline Cast (Auto) (0-2) /LPF Urine Microscopic RBC (0-5) /HPF Urine Microscopic WBC (0-5) /HPF Ur Epithelial Cells (None Seen) /HPF Urine Bacteria (None Seen) /HPF Urine Culture Reflexed (NO) Radiology Exams: Radiology Procedures Category Date Time Status HEAD WITHOUT CONTRAST [CT] Stat Exams 02/13/23 09:39 Completed Assessment/Plan (1) Dizziness Current Visit: Yes Status: Acute Assessment & Plan: This is the problem that brought her to hospital She is having vertigo that is some what positional CT head is negative No focal symptoms or findings Neurology recommends MRI of brain Will treat with Antivert and nausea meds as needed Code(s): R42 - DIZZINESS AND GIDDINESS (2) HTN (hypertension) Current Visit: Yes Status: Chronic Qualifiers: Hypertension type: primary hypertension Qualified Code(s): I10 - Essential (primary) hypertension Assessment & Plan: Continue home meds Code(s): I10 - ESSENTIAL (PRIMARY) HYPERTENSION (3) Diabetes type 2, controlled Current Visit: Yes Status: Chronic Assessment & Plan: Diabetes type 2 controlled Monitor BS. SS insulin Code(s): E11.9 - TYPE 2 DIABETES MELLITUS WITHOUT COMPLICATIONS (4) UTI (urinary tract infection) Current Visit: Yes Status: Acute Assessment & Plan: UA suggests possible UTI Culture pending Will begin oral antibiotic Code(s): N39.0 - URINARY TRACT INFECTION, SITE NOT SPECIFIED Code(s): R42 - DIZZINESS AND GIDDINESS (2) UTI (urinary tract infection) Current Visit: Yes Status: Acute Code(s): N39.0 - URINARY TRACT INFECTION, SITE NOT SPECIFIED (3) Diabetes type 2, controlled Current Visit: Yes Status: Chronic Code(s): E11.9 - TYPE 2 DIABETES MELLITUS WITHOUT COMPLICATIONS (4) HTN (hypertension) Current Visit: Yes Status: Chronic Qualifiers: Hypertension type: primary hypertension Qualified Code(s): I10 - Essential (primary) hypertension Code(s): I10 - ESSENTIAL (PRIMARY) HYPERTENSION
[2023-02-14 05:06] LABS: Absolute Neutrophil Ct (ANC) 4.09 x10^3/uL (1.4-6.9); BASOPHIL % 0.4 % (0.0-0.4); Basophil (Absolute #) 0.03 x10^3/uL (0-0.4); Eosinophil (Absolute #) 0 x10^3/uL (0-0.5); Hematocrit 44.6 % (35-47); Hemoglobin 13.8 g/dL (12.0-16.0); IMMATURE GRAN # 0.03 x10^3u/L (0.00-0.03); IMMATURE GRAN % 0.4 % (0.00-0.4); Lymphocyte (Absolute #) 2.06 x10^3/uL (1.0-4.6); Lymphocytes % 30.4 % (24.0-44.0); Mean Corpuscular Hemoglobin 27.2 pg (26-32); Mean Corpuscular Hgb Concent. 30.9 g/dL (32-36); Mean Platelet Volume 9.7 fL (7.5-11.0); Monocyte (Absolute #) 0.56 x10^3/uL (0.0-1.3); Monocytes % 8.3 % (0.0-12.0); Neutrophil % 60.5 % (36.0-66.0); Platelet Count 268 x10^3/uL (150-450); Red Blood Count 5.07 x10^6/uL (4.1-5.4); Red Cell Distribution Width 13.3 % (11.5-14.0); White Blood Count 6.8 x10^3/uL (4.0-10.5)
[2023-02-14 05:23] LABS: ANION GAP 7.6 MEQ/L (5-15); Calcium 9.3 mg/dL (8.4-10.2); Creatinine 1 1.25 mg/dL (0.52-1.04); Potassium 4.3 mmol/L (3.5-5.1)
--- NOTE | 2023-02-14 10:07 | XRAY ---
Indication: Dizziness. Normal CT head exam one day earlier. Sagittal, coronal, and axial MRI brain performed without contrast using T1, T2, FLAIR, diffusion, and ADC sequences. Comparison: None Ventriculosulcal pattern appears symmetric. No acute intracranial hemorrhage, abnormal extra-axial fluid collection, or mass effect. Diffusion images are negative for restricted signal. Fourth ventricle is midline without hydrocephalus. 7/8 cranial nerve complex bilaterally symmetric. Normal flow void signal within the major intracerebral circulation. Normal appearing craniocervical junction and sella turcica. Visualized paranasal sinuses are clear. Impression: Normal MRI brain without contrast exam.
[2023-02-14] MEDS: KEFLEX 500 MG PO SCH (10:15)
[2023-02-14] MEDS: ANTIVERT 25 MG PO SCH (10:16)
[2023-02-14] MEDS: ENOXAPARIN SODIUM SQ SCH (10:16)
[2023-02-14 11:45] VITALS: BP 119/64; PULSE 73; RESP 16; TEMP 97.7; O2SAT 94
--- NOTE | 2023-02-14 11:51 | PCM.DS ---
Discharge Summary Date of Admission: 02/13/23 12:01 Date of Discharge: 02/14/23 Admitting Physician: EMMANUEL HATCH MD Primary Care Provider: DANIELA ARBOLEDA DO Allergies Allergies nitrofurantoin [From Macrobid] Allergy (Intermediate, Verified 02/13/23 09:09) Hives nitrofurantoin macrocrystalline [From Macrobid] Allergy (Intermediate, Verified 02/13/23 09:09) Hives doxycycline Allergy (Mild, Verified 02/13/23 09:09) Diarrhea gatifloxacin [From Tequin] Allergy (Mild, Verified 02/13/23 09:09) acetaminophen [From Vicodin] Allergy (Verified 02/13/23 09:09) clarithromycin [From Biaxin] Allergy (Verified 02/13/23 09:09) Stomach Pain hydrocodone bitartrate [From Vicodin] Allergy (Verified 02/13/23 09:09) pt does not think she is allergic to vicodin does not remember taking it. potassium clavula *RETIRED-06/26/12 [From Augmentin] Allergy (Verified 02/13/23 09:09) Diarrhea amoxicillin trihydrate [From Augmentin] Adverse Reaction (Verified 02/13/23 09:09) Hospital Summary - Hospital Course Hospital Course: is a 57 year old female with a PMH includes HTN, DM, NAOMI and pseudotumor cerebri presented to ED 02/13/23 with complaints of "room spinning" dizziness, worse when she bends her head forward. Patient admitted with vertigo. CT of the head was unremarkable. Neurology consulted recommending MRI which demonstrates a normal exam. Titi maneuver performed which patient states helped. Meclizine is also helping. No further complaints of dizziness this morning.Urine culture showing no growth to date. Patient is most likely experiencing benign paroxysmal positional vertigo. She has been provided home exercises to perform to help with this in addition to meclizine. Patient is stable and ready for discharge. Advised follow up with PCP in one week with recheck of labs. Discharge Note New Diagnosis: BPPV New Medications: Meclizine Follow Up: PCP Latest Assessment & Plan (1) Dizziness Current Visit: Yes Status: Acute Assessment & Plan: This is the problem that brought her to hospital She is having vertigo that is some what positional CT head is negative No focal symptoms or findings Neurology recommends MRI of brain Will treat with Antivert and nausea meds as needed Code(s): R42 - DIZZINESS AND GIDDINESS (2) HTN (hypertension) Current Visit: Yes Status: Chronic Qualifiers: Hypertension type: primary hypertension Qualified Code(s): I10 - Essential (primary) hypertension Assessment & Plan: Continue home meds Code(s): I10 - ESSENTIAL (PRIMARY) HYPERTENSION (3) Diabetes type 2, controlled Current Visit: Yes Status: Chronic Assessment & Plan: Diabetes type 2 controlled Monitor BS. SS insulin Code(s): E11.9 - TYPE 2 DIABETES MELLITUS WITHOUT COMPLICATIONS (4) UTI (urinary tract infection) Current Visit: Yes Status: Acute Assessment & Plan: UA suggests possible UTI Culture pending Will begin oral antibiotic Code(s): N39.0 - URINARY TRACT INFECTION, SITE NOT SPECIFIED I spent 35 minutes [id number] with the patient on the day of discharge performing discharge exam, discussing hospital stay and discharge instructions with patient and caregivers, preparation of discharge records, prescriptions & referral forms and addressing any questions/concerns the patient had as documented above. - Vitals & Intake/Output Vital Signs: Vital Signs Temperature 97.2 F 02/14/23 07:20 Pulse Rate 83 02/14/23 07:20 Respiratory Rate 18 02/14/23 07:20 Blood Pressure 126/69 02/14/23 07:20 O2 Sat by Pulse Oximetry 96 02/14/23 07:20 Intake & Output: Intake & Output 02/11/23 02/12/23 02/13/23 02/14/23 11:59 11:59 11:59 11:59 Intake Total 2385 Output Total 450 Balance 1935 Weight 117.934 kg 120.6 kg - Lab Result Diagrams: 02/14/23 04:59 02/14/23 04:59 Lab Results-Last 24 Hrs: Lab Results-Last 24 Hours 02/13/23 02/13/23 02/13/23 Range/Units 10:50 10:50 10:50 WBC (4.0-10.5) x10^3/uL RBC (4.1-5.4) x10^6/uL Hgb (12.0-16.0) g/dL Hct (35-47) % MCV (78-100) fL MCH (26-32) pg MCHC (32-36) g/dL RDW (11.5-14.0) % Plt Count (150-450) x10^3/uL MPV (7.5-11.0) fL Gran % (36.0-66.0) % Immature Gran % (Auto) (0.00-0.4) % Nucleat RBC Rel Count (0.00-0.1) % Eos # (Auto) (0-0.5) x10^3/uL Immature Gran # (Auto) (0.00-0.03) x10^3u/L Absolute Lymphs (auto) (1.0-4.6) x10^3/uL Absolute Monos (auto) (0.0-1.3) x10^3/uL Absolute Nucleated RBC (0.00-0.01) x10^3u/L Lymphocytes % (24.0-44.0) % Monocytes % (0.0-12.0) % Eosinophils % (0.00-5.0) % Basophils % (0.0-0.4) % Absolute Granulocytes (1.4-6.9) x10^3/uL Basophils # (0-0.4) x10^3/uL Sodium 140 (137-145) mmol/L Potassium 5.1 (3.5-5.1) mmol/L Chloride 104 (98-107) mmol/L Carbon Dioxide 28 (22-30) mmol/L Anion Gap 12.7 (5-15) MEQ/L BUN 22 H (7-17) mg/dL Creatinine 1.16 H (0.52-1.04) mg/dL Estimated GFR 54.7 ML/MIN Glucose 145 H (74-106) mg/dL POC Glucometer (74 to 106) mg/dL Hemoglobin A1c 5.80 (4.5-6.0) % Calcium 9.2 (8.4-10.2) mg/dL Total Bilirubin 0.70 (0.2-1.3) mg/dL AST 34 (14-36) U/L ALT 29 (0-35) U/L Alkaline Phosphatase 95 (38-126) U/L Troponin I < 0.012 (0.000-0.034) ng/mL Serum Total Protein 7.5 (6.3-8.2) g/dL Albumin 3.9 (3.5-5.0) g/dL 02/13/23 02/13/23 02/13/23 Range/Units 13:38 16:27 17:48 WBC (4.0-10.5) x10^3/uL RBC (4.1-5.4) x10^6/uL Hgb (12.0-16.0) g/dL Hct (35-47) % MCV (78-100) fL MCH (26-32) pg MCHC (32-36) g/dL RDW (11.5-14.0) % Plt Count (150-450) x10^3/uL MPV (7.5-11.0) fL Gran % (36.0-66.0) % Immature Gran % (Auto) (0.00-0.4) % Nucleat RBC Rel Count (0.00-0.1) % Eos # (Auto) (0-0.5) x10^3/uL Immature Gran # (Auto) (0.00-0.03) x10^3u/L Absolute Lymphs (auto) (1.0-4.6) x10^3/uL Absolute Monos (auto) (0.0-1.3) x10^3/uL Absolute Nucleated RBC (0.00-0.01) x10^3u/L Lymphocytes % (24.0-44.0) % Monocytes % (0.0-12.0) % Eosinophils % (0.00-5.0) % Basophils % (0.0-0.4) % Absolute Granulocytes (1.4-6.9) x10^3/uL Basophils # (0-0.4) x10^3/uL Sodium (137-145) mmol/L Potassium (3.5-5.1) mmol/L Chloride (98-107) mmol/L Carbon Dioxide (22-30) mmol/L Anion Gap (5-15) MEQ/L BUN (7-17) mg/dL Creatinine (0.52-1.04) mg/dL Estimated GFR ML/MIN Glucose (74-106) mg/dL POC Glucometer 83 (74 to 106) mg/dL Hemoglobin A1c (4.5-6.0) % Calcium (8.4-10.2) mg/dL Total Bilirubin (0.2-1.3) mg/dL AST (14-36) U/L ALT (0-35) U/L Alkaline Phosphatase (38-126) U/L Troponin I < 0.012 < 0.012 (0.000-0.034) ng/mL Serum Total Protein (6.3-8.2) g/dL Albumin (3.5-5.0) g/dL 02/13/23 02/14/23 02/14/23 Range/Units 21:45 04:59 04:59 WBC 6.8 (4.0-10.5) x10^3/uL RBC 5.07 (4.1-5.4) x10^6/uL Hgb 13.8 (12.0-16.0) g/dL Hct 44.6 (35-47) % MCV 88.0 (78-100) fL MCH 27.2 (26-32) pg MCHC 30.9 L (32-36) g/dL RDW 13.3 (11.5-14.0) % Plt Count 268 (150-450) x10^3/uL MPV 9.7 (7.5-11.0) fL Gran % 60.5 (36.0-66.0) % Immature Gran % (Auto) 0.4 (0.00-0.4) % Nucleat RBC Rel Count 0.0 (0.00-0.1) % Eos # (Auto) 0 (0-0.5) x10^3/uL Immature Gran # (Auto) 0.03 (0.00-0.03) x10^3u/L Absolute Lymphs (auto) 2.06 (1.0-4.6) x10^3/uL Absolute Monos (auto) 0.56 (0.0-1.3) x10^3/uL Absolute Nucleated RBC 0.00 (0.00-0.01) x10^3u/L Lymphocytes % 30.4 (24.0-44.0) % Monocytes % 8.3 (0.0-12.0) % Eosinophils % 0.0 (0.00-5.0) % Basophils % 0.4 (0.0-0.4) % Absolute Granulocytes 4.09 (1.4-6.9) x10^3/uL Basophils # 0.03 (0-0.4) x10^3/uL Sodium 137 (137-145) mmol/L Potassium 4.3 (3.5-5.1) mmol/L Chloride 105 (98-107) mmol/L Carbon Dioxide 29 (22-30) mmol/L Anion Gap 7.6 (5-15) MEQ/L BUN 20 H (7-17) mg/dL Creatinine 1.25 H (0.52-1.04) mg/dL Estimated GFR 50.0 ML/MIN Glucose 106 (74-106) mg/dL POC Glucometer 83 (74 to 106) mg/dL Hemoglobin A1c (4.5-6.0) % Calcium 9.3 (8.4-10.2) mg/dL Total Bilirubin (0.2-1.3) mg/dL AST (14-36) U/L ALT (0-35) U/L Alkaline Phosphatase (38-126) U/L Troponin I (0.000-0.034) ng/mL Serum Total Protein (6.3-8.2) g/dL Albumin (3.5-5.0) g/dL 02/14/23 Range/Units 07:01 WBC (4.0-10.5) x10^3/uL RBC (4.1-5.4) x10^6/uL Hgb (12.0-16.0) g/dL Hct (35-47) % MCV (78-100) fL MCH (26-32) pg MCHC (32-36) g/dL RDW (11.5-14.0) % Plt Count (150-450) x10^3/uL MPV (7.5-11.0) fL Gran % (36.0-66.0) % Immature Gran % (Auto) (0.00-0.4) % Nucleat RBC Rel Count (0.00-0.1) % Eos # (Auto) (0-0.5) x10^3/uL Immature Gran # (Auto) (0.00-0.03) x10^3u/L Absolute Lymphs (auto) (1.0-4.6) x10^3/uL Absolute Monos (auto) (0.0-1.3) x10^3/uL Absolute Nucleated RBC (0.00-0.01) x10^3u/L Lymphocytes % (24.0-44.0) % Monocytes % (0.0-12.0) % Eosinophils % (0.00-5.0) % Basophils % (0.0-0.4) % Absolute Granulocytes (1.4-6.9) x10^3/uL Basophils # (0-0.4) x10^3/uL Sodium (137-145) mmol/L Potassium (3.5-5.1) mmol/L Chloride (98-107) mmol/L Carbon Dioxide (22-30) mmol/L Anion Gap (5-15) MEQ/L BUN (7-17) mg/dL Creatinine (0.52-1.04) mg/dL Estimated GFR ML/MIN Glucose (74-106) mg/dL POC Glucometer 98 (74 to 106) mg/dL Hemoglobin A1c (4.5-6.0) % Calcium (8.4-10.2) mg/dL Total Bilirubin (0.2-1.3) mg/dL AST (14-36) U/L ALT (0-35) U/L Alkaline Phosphatase (38-126) U/L Troponin I (0.000-0.034) ng/mL Serum Total Protein (6.3-8.2) g/dL Albumin (3.5-5.0) g/dL Micro Results-Entire Visit: Microbiology 02/13/23 09:54 Urine Culture - Preliminary Urine, Void NO GROWTH TO DATE Accuchecks Date 02/13/23 Date 02/13/23 Time 21:48 Time 16:35 - Radiology Exams Ordered Rad Exams-Entire Visit: Radiology Procedures Category Date Time Status HEAD WITHOUT CONTRAST [CT] Stat Exams 02/13/23 09:39 Completed MRI BRAIN W/O CONTRAST [MRI] Routine Exams 02/14/23 08:31 Completed - Procedures and Test Procedures and Tests throughout Hospitalization: Therapy Orders & Screens 02/13/23 15:58 PT Eval & Treat ( Order) ONCE Reason for Eval:: Evaluate balance Diagnosis: Dizziness 02/13/23 17:03 Respiratory Therapy Assessment DAILY Comment: Diagnosis: Dizziness Discharge Exam General Appearance: no apparent distress Neurologic Exam: alert, oriented x 3, cooperative Eye Exam: PERRL Ears, Nose, Throat Exam: normal ENT inspection Neck Exam: normal inspection Respiratory Exam: normal breath sounds, lungs clear Cardiovascular Exam: regular rate/rhythm, normal heart sounds Gastrointestinal/Abdomen Exam: soft, normal bowel sounds Pelvic Exam: deferred Rectal Exam: deferred Back Exam: normal inspection Extremity Exam: normal inspection Skin Exam: normal color Final Diagnosis/Problem List - Final Discharge Diagnosis/Problem (1) Dizziness Current Visit: Yes Status: Acute Code(s): R42 - DIZZINESS AND GIDDINESS (2) UTI (urinary tract infection) Current Visit: Yes Status: Ruled-out Code(s): N39.0 - URINARY TRACT INFEC TION, SITE NOT SPECIFIED (3) Diabetes type 2, controlled Current Visit: Yes Status: Chronic Code(s): E11.9 - TYPE 2 DIABETES MELLITUS WITHOUT COMPLICATIONS (4) HTN (hypertension) Current Visit: Yes Status: Chronic Code(s): I10 - ESSENTIAL (PRIMARY) HYPERTENSION - Discharge Disposition: Home, Self-Care Condition: Stable Prescriptions: New Meclizine HCl 25 mg [Antivert 25 mg] 25 mg PO TID 30 Days #90 tablet Continue Fluoxetine HCl 40 mg PO HS Albuterol Sulfate [Proair Hfa] 2 puff IH Q4H PRN PRN PRN Reason: Shortness Of Breath/Wheezing Diphenhydramine HCl [Benadryl Allergy] 25 mg PO HS PRN PRN PRN Reason: Allergies Montelukast Sodium 10 mg [Singulair 10 MG] 10 mg PO HS Benralizumab [Fasenra] 30 mg SQ UD Aspirin EC 81 mg [Ecotrin 81 mg] 81 mg PO HS Lisinopril 10 mg [Zestril 10 MG] 10 mg PO HS Levocetirizine Dihydrochloride [Xyzal] 5 mg PO HS Omeprazole 20 mg PO HS Follow up with: DANIELA ARBOLEDA DO [Primary Care Provider] -
== END 2023-02-14 12:42 | disposition home or self-care (01) ==
LOC: ED 08:51 → MED SURG 12:01
PROVIDERS: ADMIT Internal Medicine; ATTEND Internal Medicine
DX: R42 Dizziness and giddiness (principal); N39.0 Urinary tract infection, site not specified; I10 Essential (primary) hypertension; E11.9 Type 2 diabetes mellitus without complications; Z79.899 Other long term (current) drug therapy
CPT/HCPCS: 36415; 70450; 70551; 80048; 80053; 81001; 82947; 83036; 84484; 85025; 87086; 93005; 93041; 93268; 94760; 96374; 99285; J1650; J1885; J2405; Q3014; A9270-GY; G0378